=== PATIENT | female | born 1975 | race Caucasian/White ===

== ENCOUNTER → 2023-10-09 14:58 | Outpatient (REF) | payer BC, SELFPAY | LOC: HWEVLT 14:58 | PROVIDERS: ATTENDING PHYSICIAN Radiology Vascular & Interventional Radiology | DX: I83.893 Varicose veins of bilateral lower extremities with other complications (principal) | CPT/HCPCS: 93970 ==

== ENCOUNTER 2024-05-11 18:01 | Emergency (ER) | payer BC, SELFPAY ==
[2024-05-11 18:13] VITALS: BP 121/82
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
[2024-05-11] MEDS: MOTRIN 400 MG PO (20:01)
== END 2024-05-11 20:09 | disposition home or self-care (01) ==
LOC: EMR 18:01
PROVIDERS: EMERGENCY PHYSICIAN Emergency Medicine; FAMILY PHYSICIAN Family Medicine
DX: S16.1XXA Strain of muscle, fascia and tendon at neck level, initial encounter (principal); V49.59XA Passenger injured in collision with other motor vehicles in traffic accident, initial encounter
CPT/HCPCS: 99282

== ENCOUNTER → 2024-08-21 11:12 | Outpatient (REF) | payer BC, SELFPAY | LOC: HWEVLT 11:12 | PROVIDERS: ATTENDING PHYSICIAN Radiology Vascular & Interventional Radiology | DX: I83.893 Varicose veins of bilateral lower extremities with other complications (principal) | CPT/HCPCS: 93970 ==

== ENCOUNTER 2024-10-22 06:24 | Day surgery (SDC) | payer BC, SELFPAY | END 2024-10-22 11:31 | disposition home or self-care (01) | LOC: GI 06:24 | PROVIDERS: ATTENDING PHYSICIAN Internal Medicine | DX: Z12.11 Encounter for screening for malignant neoplasm of colon (principal); D12.2 Benign neoplasm of ascending colon | CPT/HCPCS: 45385; 88305 ==

== ENCOUNTER → 2024-11-26 08:10 | Outpatient (REF) | payer BC, SELFPAY | LOC: HWEVLT 08:10 | PROVIDERS: ATTENDING PHYSICIAN Radiology Vascular & Interventional Radiology | DX: I83.891 Varicose veins of right lower extremity with other complications (principal) | CPT/HCPCS: 36478; C1769 ==

== ENCOUNTER → 2024-12-11 08:07 | Outpatient (REF) | payer BC, SELFPAY | LOC: HWEVLT 08:07 | PROVIDERS: ATTENDING PHYSICIAN Radiology Vascular & Interventional Radiology | DX: I83.891 Varicose veins of right lower extremity with other complications (principal) | CPT/HCPCS: 93971 ==